=== PATIENT | female | born 1950 | race Caucasian/White ===

== ENCOUNTER → 2016-12-23 | Outpatient (CLI) | payer MEDICARE ==
--- NOTE | 2016-12-23 16:55 | BD ---
EXAMINATION TYPE: MG DEXA axial skeleton. DATE OF EXAM: 12/23/2016 COMPARISON: NONE CLINICAL HISTORY: Height: 61 Weight: 165.5 FRAX RISK QUESTIONS: Alcohol (3 or more units per day): no Family History (Parent hip fracture): no Glucocorticoids (More than 3mos): no (Ex: prednisone, prednisolone, methylprednisolone, dexamethasone, and hydrocortisone). History of Fracture in Adulthood: no Secondary Osteoporosis: 1. Type 1 Diabetes: no 2. Hyperthyroidism: no 3. Menopause before 45: no 4. Malnutrition: no 5. Chronic liver disease: no Rheumatoid Arthritis: no Current Tobacco Use: no RISK FACTORS HISTORY OF: Hip Fracture (Right/Left): no Spine Fracture: no History of Wrist Fracture: no Surgery to Spine/Hip(right/left)/Wrist (right/left): no Family History of Osteoporosis: no Active: yes Diet low in dairy products/other sources of calcium: yes Postmenopausal woman: age 52 Lost more than 2 inches in height since high school: no Frequent falls: no Poor Health: no Hyperparathyroidism: no Adrenal Insufficiency: no MEDICATIONS: none Additional History: EXAM MEASUREMENTS: Bone mineral densitometry was performed using the lettrs System. Bone mineral density as measured about the Lumbar spine is: ----- L1-L4(G/cm2): 1.416 T Score Values are as follows: ----- L2: 0.8 ----- L3: 2.6 ----- L4:2.8 ----- L1-L4: 2.0 Bone mineral density has: decreased -5.5 % since study of: 2011 Bone mineral density about the R hip (g/cm2): 1.249 Bone mineral density about the L hip (g/cm2): 1.179 T Score values are as follows: -----R Neck: 1.5 -----L Neck: 1.0 -----R Total: 1.7 -----L Total: 1.2 Bone mineral density has: increased 0.9 % since study of: 03.05.2012 IMPRESSION: Normal (Values between +1 and -1 indicate normal bone mass). Consider repeating this study in 5 year s or sooner if there is some new clinical indication. NOTE: T-SCORE=SD OF THE YOUNG ADULT MEAN.
--- NOTE | 2016-12-26 09:48 | MM ---
Reason for exam: screening (asymptomatic). Last mammogram was performed 1 year and 7 months ago. History: Patient is postmenopausal. Benign right mammotome panel of the right breast, January 04, 2008. Physical Findings: A clinical breast exam by your physician is recommended on an annual basis and results should be correlated with mammographic findings. MG 3D Screening Mammo W/Cad Bilateral CC and MLO view(s) were taken. Prior study comparison: May 21, 2015, bilateral MG 3d screening mammo w/cad. February 13, 2014, bilateral MG screening mammo w CAD. The breast tissue is almost entirely fat. Previous ultrasound biopsy in the right breast. No significant changes when compared with prior studies. ASSESSMENT: Benign, BI-RAD 2 RECOMMENDATION: Routine screening mammogram of both breasts in 1 year.
== END | disposition home or self-care (01) ==
LOC: RADMAMWWP 12:01
PROVIDERS: ATTEND Family Medicine
DX: Z12.31 Encounter for screening mammogram for malignant neoplasm of breast (principal); Z13.820 Encounter for screening for osteoporosis
CPT/HCPCS: 77080; 77063; G0202

== ENCOUNTER → 2018-06-25 | Outpatient (CLI) | payer MEDICARE ==
--- NOTE | 2018-06-26 08:22 | MM ---
Reason for exam: screening (asymptomatic). Last mammogram was performed 1 year and 6 months ago. History: Patient is postmenopausal. Benign right mammotome panel of the right breast, January 04, 2008. Physical Findings: A clinical breast exam by your physician is recommended on an annual basis and results should be correlated with mammographic findings. MG Screening Mammo w CAD Bilateral CC and MLO view(s) were taken. Prior study comparison: December 23, 2016, bilateral MG 3d screening mammo w/cad. May 21, 2015, bilateral MG 3d screening mammo w/cad. There are scattered fibroglandular densities. No suspicious abnormality. Right biopsy marker noted. No significant changes when compared with prior studies. ASSESSMENT: Negative, BI-RAD 1 RECOMMENDATION: Routine screening mammogram of both breasts in 1 year.
== END | disposition home or self-care (01) ==
LOC: RADMAMWWP 11:35
PROVIDERS: ATTEND Family Medicine
DX: Z12.31 Encounter for screening mammogram for malignant neoplasm of breast (principal)
CPT/HCPCS: 77067

== ENCOUNTER 2018-07-11 09:08 | Day surgery (SDC) | payer MEDICARE ==
[2018-07-06 16:48] VITALS: BMI 31.7
--- NOTE | 2018-07-11 08:04 | P.GSHP ---
History of Present Illness H&P Date: 07/11/18 CHIEF COMPLAINT: Colon screen HISTORY OF PRESENT ILLNESS: The patient is a 67-year-old female who presents for colon screen. Lower endoscopy was offered for further evaluation and management. PAST MEDICAL HISTORY: Please see list. PAST SURGICAL HISTORY: Please see list. MEDICATIONS: Please see list. ALLERGIES: Please see list. SOCIAL HISTORY: No illicit drug use FAMILY HISTORY: No reports of Crohn disease or ulcerative colitis. REVIEW OF ORGAN SYSTEMS: CONSTITUTIONAL: No reports of fevers or chills. PHYSICAL EXAM: VITAL SIGNS: Stable GENERAL: Well-developed pleasant in no acute distress. HEENT: No scleral icterus. Extraocular movements grossly intact. Moist buccal mucosa. NECK: Supple without lymphadenopathy. CHEST: Unlabored respirations. Equal bilateral excursions. CARDIOVASCULAR: Regular rate and rhythm. Distal 2+ pulses. ABDOMEN: Soft, nontender, nondistended. MUSCULOSKELETAL: No clubbing, cyanosis, or edema. ASSESSMENT: 1. Colon screen. PLAN: 1. Recommend proceeding with a lower endoscopy Past Medical History Past Medical History: GERD/Reflux, Hypertension, Osteoarthritis (OA) Additional Past Medical History / Comment(s): hx. colon polyps History of Any Multi-Drug Resistant Organisms: None Reported Past Surgical History: Tubal Ligation Additional Past Surgical History / Comment(s): dental surgery, colonoscopy Past Anesthesia/Blood Transfusion Reactions: No Reported Reaction Smoking Status: Former smoker - Past Family History Brother(s) Family Medical History: Cancer Additional Family Medical History / Comment(s): COLON CANCER Mother Family Medical History: Cancer Additional Family Medical History / Comment(s): Hodgkins lymphoma Medications and Allergies Home Medications Medication Instructions Recorded Confirmed Type Lisinopril [Zestril] 10 mg PO DAILY 07/06/18 07/06/18 History Lysine [l-Lysine] 500 mg PO DAILY 07/06/18 07/06/18 History Mirabegron [Myrbetriq] 50 mg PO DAILY 07/06/18 07/06/18 History [place]-3 Fatty Acids/Fish Oil [Fish 1 each PO DAILY 07/06/18 07/06/18 History Oil 1,000 mg Softgel] Omeprazole [PriLOSEC] 20 mg PO DAILY 07/06/18 07/06/18 History Zinc 50 mg PO DAILY 07/06/18 07/06/18 History Allergies Allergy/AdvReac Type Severity Reaction Status Date / Time codeine Allergy Hallucinati Verified 07/06/18 16:44 ons
[~2018-07-11 09:08] MED LIST: LACTATED RINGERS 1,000 ML IV SCH; LIDOCAINE 1% 20 ML VIAL (10MG/ML) FOR IV START INTRADERMA PRN
[2018-07-11 09:27] VITALS: RESP 16; TEMP 96.5
[2018-07-11] MEDS ORDERED: ATROPINE SULFATE 0.1 MG/ML 10ML SYRINGE ONE (10:05)
[2018-07-11] MEDS ORDERED: PROPOFOL 10 MG/ML 20 ML VIAL IV ONE (10:05)
[2018-07-11] MEDS ORDERED: LIDOCAINE 1% INJ 10MG/ML (20 ML MDV) ONE (10:05)
--- NOTE | 2018-07-11 10:35 | P.PCN ---
Date of Procedure: 07/11/18 Description of Procedure: PREOPERATIVE DIAGNOSIS: Personal history of malignant colon polyp Colonoscopy screening POSTOPERATIVE DIAGNOSIS: Personal history of malignant colon polyp Colonoscopy screening Diverticulosis, scattered Hepatic flexure tubular adenoma OPERATION: Colonoscopy to the ileocecal valve and appendiceal orifice. Colonoscopy with hot snare polypectomy SURGEON: Janiya Mckinney MD. ANESTHESIA: MAC. INDICATIONS: The patient is a 67-year-old female who presents for colonoscopy screening. Last colonoscopy 3 years ago with malignant polyp extracted. Benefits and risks were described and informed consent was obtained. DESCRIPTION OF PROCEDURE: The patient had undergone Gatorade, MiraLAX and Dulcolax prep. She had been brought into the operating room and laid in the left lateral decubitus position. After adequate intravenous sedation, the rectum was examined with 2% lidocaine jelly. No external hemorrhoids were encountered. The rectal tone was within normal limits. No lesions were palpated in the rectal vault. An Olympus colonoscope was advanced until the ileocecal valve and appendiceal orifice were clearly viewed. The prep was good with visualization of the mucosal folds. The scope was removed with visualization of each mucosal fold. No scattered diverticulosis was encountered. At the hepatic flexure, flat villous 8 mm colon polyp was snare polypectomy. No evidence of focal colitis was found. Retroflexion of the scope demonstrated grade 1 internal hemorrhoids without active bleeding or inflammation. The colon was desufflated. The patient had tolerated the procedure well. Withdrawal time was over 6 minutes. FINDINGS: [place] preparation quality scale 1 (1-5) Internal hemorrhoids, grade 1 No external hemorrhoids Scattered sigmoid diverticulosis No arteriovenous malformations. Removal of 1 polyp: - Snare polypectomy at the hepatic flexure, flat villous 8 mm colon polyp. No focal colitis. RECOMMENDATIONS: Given severity of tubular adenomas, recommend repeat colonoscopy 3 years, 2021. Plan - Discharge Summary Discharge Rx Participant: No New Discharge Prescriptions: No Action Omeprazole [PriLOSEC] 20 mg PO DAILY Mirabegron [Myrbetriq] 50 mg PO DAILY Lisinopril [Zestril] 10 mg PO DAILY Zinc 50 mg PO DAILY [place]-3 Fatty Acids/Fish Oil [Fish Oil 1,000 mg Softgel] 1 each PO DAILY Lysine [l-Lysine] 500 mg PO DAILY Discharge Medication List Lisinopril [Zestril] 10 mg PO DAILY 07/06/18 [History] Lysine [l-Lysine] 500 mg PO DAILY 07/06/18 [History] Mirabegron [Myrbetriq] 50 mg PO DAILY 07/06/18 [History] [place]-3 Fatty Acids/Fish Oil [Fish Oil 1,000 mg Softgel] 1 each PO DAILY 07/06/18 [History] Omeprazole [PriLOSEC] 20 mg PO DAILY 07/06/18 [History] Zinc 50 mg PO DAILY 07/06/18 [History] Follow up Appointment(s)/Referral(s): Janiya Mckinney MD [STAFF PHYSICIAN] - As Needed Patient Instructions/Handouts: Colorectal Polyps (DC), Diverticulosis (GEN), Diverticulosis Diet (GEN) Activity/Diet/Wound Care/Special Instructions: Repeat colonoscopy in 3 years, 2021 Discharge Disposition: HOME SELF-CARE
[2018-07-11 11:26] VITALS: BP 125/75; PULSE 88
== END 2018-07-11 11:33 | disposition home or self-care (01) ==
LOC: ORWHC2ENDO 09:08
PROVIDERS: ATTEND Surgery Plastic and Reconstructive Surgery
DX: Z12.11 Encounter for screening for malignant neoplasm of colon (principal); D12.3 Benign neoplasm of transverse colon; K57.30 Diverticulosis of large intestine without perforation or abscess without bleeding; K64.0 First degree hemorrhoids; Z86.010 Personal history of colon polyps; K21.9 Gastro-esophageal reflux disease without esophagitis; I10 Essential (primary) hypertension; M19.90 Unspecified osteoarthritis, unspecified site; Z87.891 Personal history of nicotine dependence; Z80.0 Family history of malignant neoplasm of digestive organs; Z80.7 Family history of other malignant neoplasms of lymphoid, hematopoietic and related tissues; F41.9 Anxiety disorder, unspecified; F32.9 Major depressive disorder, single episode, unspecified; Z79.899 Other long term (current) drug therapy; Z88.5 Allergy status to narcotic agent
CPT/HCPCS: 88305; 45385; J2001; J0461; J2704

== ENCOUNTER → 2019-03-13 | Outpatient (CLI) | payer MEDICARE ==
--- NOTE | 2019-03-13 14:38 | US ---
EXAMINATION TYPE: US pelvis complete transvag DATE OF EXAM: 03/13/2019 COMPARISON: NONE CLINICAL HISTORY: N93.9 ABN UTERINE AND VAGINAL BLEEDING. Vaginal bleeding, tubal ligation TECHNIQUE: Transvaginal (TV) and Transabdominal (TA) . Transabdominal sonographic images of the pel vis were acquired. Transvaginal sonographic images were medically necessary to better assess the fol lowing anatomy: endometrium, ovaries Date of LMP: unknown EXAM MEASUREMENTS: Uterus: 9.8 x 3.2 x 4.8 cm Endometrial Stripe: 1.9 cm Right Ovary: unable to visualize Left Ovary: unable to visualize 1. Uterus: Anteverted Nabothian cysts 2. Endometrium: thickened, cystic areas noted 3. Right Ovary: Obscured by overlying bowel gas 4. Left Ovary: Obscured by overlying bowel gas 5. Bilateral Adnexa: appears wnl 6. Posterior cul-de-sac: wnl IMPRESSION: Abnormally thickened and heterogenous endometrium. Differential is for endometrial hyperp lasia, endometrial polyp or endometrial mass. Direct visualization with sampling is recommended. Ovar ies are obscured by bowel gas and not visualized.
== END | disposition home or self-care (01) ==
LOC: RADUSWWP 12:40
PROVIDERS: ATTEND Family Medicine
DX: N85.8 Other specified noninflammatory disorders of uterus (principal)
CPT/HCPCS: 76830; 76856

== ENCOUNTER → 2019-04-22 | Outpatient (CLI) | payer MEDICARE ==
[2019-04-22 11:21] LABS: Basophils % (A) 0 %; Eosinophils # (A) 0.1 k/uL (0-0.7); Eosinophils % (A) 2 %; HCT 40.6 % (34.0-46.0); HGB 13.2 gm/dL (11.4-16.0); Lymphocytes # (A) 1.7 k/uL (1.0-4.8); Lymphocytes % (A) 20 %; MCH 29.5 pg (25.0-35.0); MCHC 32.7 g/dL (31.0-37.0); MCV 90.3 fL (80.0-100.0); Mean Platelet Volume 7.2; Monocytes # (A) 0.5 k/uL (0-1.0); Monocytes % (A) 6 %; Neutrophils # (A) 5.9 k/uL (1.3-7.7); Neutrophils % (A) 71 %; Platelet Count 296 k/uL (150-450); RBC 4.49 m/uL (3.80-5.40); RDW 12.2 % (11.5-15.5); WBC 8.3 k/uL (3.8-10.6)
== END | disposition home or self-care (01) ==
LOC: LABPAT 10:57
PROVIDERS: ATTEND Obstetrics & Gynecology
DX: Z01.818 Encounter for other preprocedural examination (principal); Z01.812 Encounter for preprocedural laboratory examination
CPT/HCPCS: 36415; 85025; 93005

== ENCOUNTER → 2019-04-30 | Day surgery (SDC) | payer MEDICARE ==
[2019-04-25 13:21] VITALS: BMI 30.9
--- NOTE | 2019-04-29 17:35 | P.HPOB ---
History of Present Illness H&P Date: 04/29/19 Chief Complaint: postmenopausal bleeding 68 year old presents for D&C hysteroscopy for postmenopausal bleeding and thickened endometrium. Review of Systems All systems: negative Constitutional: Denies chills, Denies fever Eyes: denies blurred vision, denies pain Ears, nose, mouth and throat: Denies headache, Denies sore throat Cardiovascular: Denies chest pain, Denies shortness of breath Respiratory: Denies cough Gastrointestinal: Denies abdominal pain, Denies diarrhea, Denies nausea, Denies vomiting Genitourinary: Denies dysuria, Denies hematuria Musculoskeletal: Denies myalgias Integumentary: Denies pruritus, Denies rash Neurological: Denies numbness, Denies weakness Psychiatric: Denies anxiety, Denies depression Endocrine: Denies fatigue, Denies weight change Past Medical History Past Medical History: GERD/Reflux, Hypertension, Osteoarthritis (OA) Additional Past Medical History / Comment(s): varicose vein, History of Any Multi-Drug Resistant Organisms: None Reported Past Surgical History: Tubal Ligation Additional Past Surgical History / Comment(s): dental surgery, colonoscopy, lymph node removed from neck Past Anesthesia/Blood Transfusion Reactions: Postoperative Nausea & Vomiting (PONV) Smoking Status: Former smoker - Past Family History Brother(s) Family Medical History: Cancer Additional Family Medical History / Comment(s): COLON, esophageal,skin Mother Family Medical History: Cancer Additional Family Medical History / Comment(s): Hodgkins lymphoma Sister(s) Family Medical History: Cancer Medications and Allergies Home Medications Medication Instructions Recorded Confirmed Type Lisinopril [Zestril] 10 mg PO DAILY 07/06/18 04/25/19 History [place]-3 Fatty Acids/Fish Oil [Fish 1 each PO DAILY 07/06/18 04/25/19 History Oil 1,000 mg Softgel] Cholecalciferol [Vitamin D3 (25 1,000 unit PO DAILY 04/25/19 04/25/19 History Mcg = 1000 Iu)] Escitalopram [Lexapro] 10 mg PO HS 04/25/19 04/25/19 History Ranitidine HCl [Zantac] 150 mg PO DAILY PRN 04/25/19 04/25/19 History Allergies Allergy/AdvReac Type Severity Reaction Status Date / Time codeine Allergy Hallucinati Verified 04/25/19 13:12 ons Exam Osteopathic Statement: *. No significant issues noted on an osteopathic structural exam other than those noted in the History and Physical/Consult. Assessment and Plan (1) Postmenopausal bleeding Status: Acute Code(s): N95.0 - POSTMENOPAUSAL BLEEDING SNOMED Code(s): 99058868 Plan: 1. D&C hysteroscopy
[~2019-04-30] MED LIST changes: +DEXAMETHASONE SOD PHOSPHATE 10 MG/ML 1 ML VIAL IV ONE; +HYDROmorphone 0.5 MG/0.5 ML SYRINGE IVP PRN; +KETOROLAC 30 MG/ML 1 ML VIAL ONE; -LACTATED RINGERS 1,000 ML IV SCH; +LIDOCAINE 1% (10MG/ML) FOR IV START INTRADERMA PRN; -LIDOCAINE 1% 20 ML VIAL (10MG/ML) FOR IV START INTRADERMA PRN; +MIDAZOLAM 2 MG/2 ML VIAL ONE; +ONDANSETRON 4 MG/2 ML VIAL IVP ONE; +ONDANSETRON 4 MG/2 ML VIAL IVP PRN; +PROPOFOL 10 MG/ML 20 ML VIAL IV ONE; +Pre Op ABX Message 1 EACH MISC MISCELLANE ONE; +SUCCINYLCHOLINE CHLORIDE 100 MG/5 ML SYR IV ONE; +fentaNYL (PF) 50 MCG/ML 2 ML AMP ONE
[2019-04-30] MEDS: LACTATED RINGERS 1,000 ML IV SCH ×2 (07:28→08:01)
--- NOTE | 2019-04-30 08:34 | P.OP ---
Date of Procedure: 04/30/19 Preoperative Diagnosis: 1. Postmenopausal bleeding Postoperative Diagnosis: 1. Postmenopausal bleeding Procedure(s) Performed: D&C hysteroscopy Anesthesia: VERO Surgeon: Jing Driver Estimated Blood Loss (ml): 3 IV fluids (ml): 500 Urine output (ml): 100 Pathology: other (Endometrial curettings) Condition: stable Disposition: PACU Operative Findings: Uterus sounded to 8 cm. Large appearing polyps in the endometrium. Moderate amount of endometrial curettings Description of Procedure: Patient is taken the operating room where general anesthesia was obtained without difficulty. She is prepped and draped in normal sterile fashion dorsal lithotomy position, legs placed in candycane stirrups. Bladder was drained of all urine. Weighted speculum was placed in the anterior lip of the cervix was grasped with single-tooth tenaculum. Uterus was sounded to 8 cm. The cervix was dilated to #6 Hegar dilator. Hysteroscopy was performed. The ostia were not able to be visualized. There were at least 2 large polyps seen within the endometrium. Sharp curet used to gently used to obtain endometrial curettings and polyp forceps were used to remove more tissue. Hemostasis was assured. All instruments removed from the vagina. Patient to our procedure well, sponge and instrument counts correct 2. She was taken to recovery in stable condition.
[2019-04-30 08:47] VITALS: TEMP 97.9
[2019-04-30 09:46] VITALS: BP 126/72; PULSE 66; RESP 18
== END | disposition home or self-care (01) ==
LOC: OR 06:54
PROVIDERS: ATTEND Obstetrics & Gynecology
DX: C54.1 Malignant neoplasm of endometrium (principal); N84.0 Polyp of corpus uteri; N95.0 Postmenopausal bleeding; I10 Essential (primary) hypertension; F32.9 Major depressive disorder, single episode, unspecified; K21.9 Gastro-esophageal reflux disease without esophagitis; M19.90 Unspecified osteoarthritis, unspecified site; I83.90 Asymptomatic varicose veins of unspecified lower extremity; Z88.5 Allergy status to narcotic agent; Z87.891 Personal history of nicotine dependence; Z79.899 Other long term (current) drug therapy; Z98.51 Tubal ligation status; Z98.890 Other specified postprocedural states; Z80.0 Family history of malignant neoplasm of digestive organs; Z80.8 Family history of malignant neoplasm of other organs or systems; Z80.7 Family history of other malignant neoplasms of lymphoid, hematopoietic and related tissues
CPT/HCPCS: 88305; 58558; J2250; J1100; J2405; J3010; J1885; J0330; J2704

== ENCOUNTER → 2019-05-08 | Outpatient (CLI) | payer MEDICARE ==
[2019-05-09 00:04] LABS: African American GFR (CKD) 108.5 (60.0-200.0); Albumin 4.3 g/dL (3.80-4.90); Albumin/Globulin Ratio 2.39 (1.60-3.17); Anion Gap 8.7 mmol/L (4.00-12.00); BUN/Creat Ratio 28.33 Ratio (12.00-20.00); Calcium 9.4 mg/dL (8.7-10.3); Carbon Dioxide 27.3 mmol/L (21.6-31.8); Globulin 1.8 g/dL (1.6-3.3); Non-African American GFR(CKD) 93.7 (60.0-200.0); Potassium 4.2 mmol/L (3.5-5.5); Total Bilirubin 0.5 mg/dL (0.2-1.2); Total Protein 6.1 g/dL (6.2-8.2)
== END | disposition home or self-care (01) ==
LOC: LABWHC1 15:35
PROVIDERS: ATTEND Obstetrics & Gynecology
DX: C55 Malignant neoplasm of uterus, part unspecified (principal)
CPT/HCPCS: 36415; 80053

== ENCOUNTER → 2019-05-10 | Outpatient (CLI) | payer MEDICARE ==
--- NOTE | 2019-05-10 14:59 | CT ---
EXAMINATION TYPE: CT ChestAbdPelvis wo/w con DATE OF EXAM: 05/10/2019 COMPARISON: 07/21/2010 HISTORY: Carcinoma of Uterus CT DLP: 3012 mGycm Automated exposure control for dose reduction was used. CONTRAST: CT scan of the chest, abdomen and pelvis is performed with Oral Contrast and without and with IV Cont rast, patient injected with 100 ml mL of Isovue 300. FINDINGS: LUNGS: The lungs are grossly clear. There is a small 3 mm nodule in the left lower lobe axial image 4 0 sequence 3. There is no pleural effusion or pneumothorax seen. The tracheobronchial tree is henry nt. Subsegmental linear changes most typical of atelectasis. MEDIASTINUM: There are no greater than 1 cm hilar or mediastinal lymph nodes. No pericardial effusi on is seen. OTHER: Moderate-sized hiatal hernia noted. LIVER/GB: 7 mm hyperdensity at the dome of the liver laterally axial image 51 is too small to charact erize. PANCREAS: No significant abnormality is seen. SPLEEN: No significant abnormality is seen. ADRENALS: No significant abnormality is seen. KIDNEYS: Hypodensities within the kidneys are too small to characterize. Likely related to simple cys ts.. BOWEL: Diverticulosis of the colon with no CT evidence of diverticulitis. LYMPH NODES: No greater than 1 cm abdominal or pelvic lymph nodes are appreciated. OSSEOUS STRUCTURES: Hypertrophic and degenerative changes of the spine are noted. OTHER: Endometrium is mildly prominent in thickness measuring 2.6 cm. No surrounding pathologic adeno mini. No free fluid. The omentum has a normal appearance. IMPRESSION: 1. Endometrium is thickened measuring 2.6 cm correlate for endometrial pathology or carcinoma. No pat hologic adenopathy or free fluid. 2. Diverticulosis of the colon. 3. Moderate-sized hiatal hernia. 4. There is a small nodule within the left lower lobe axial image 40 measuring 3 mm too small to gloria acterize and could be followed on six-month basis..
== END | disposition home or self-care (01) ==
LOC: RADCTMAIN 12:19
PROVIDERS: ATTEND Obstetrics & Gynecology
DX: C55 Malignant neoplasm of uterus, part unspecified (principal); R91.1 Solitary pulmonary nodule; K57.30 Diverticulosis of large intestine without perforation or abscess without bleeding; K44.9 Diaphragmatic hernia without obstruction or gangrene
CPT/HCPCS: 71270; 74178; Q9967

== ENCOUNTER → 2019-11-20 | Outpatient (CLI) | payer MEDICARE ==
[2019-11-20 11:21] LABS: African American GFR (CKD) >90 (>60 ml/min/1.73 sqM); Blood Urea Nitrogen 14 mg/dL (7-17); Non-African American GFR(CKD) >90 (>60 ml/min/1.73 sqM)
--- NOTE | 2019-11-20 13:29 | CT ---
"EXAMINATION TYPE: CT ChestAbdPelvis w con DATE OF EXAM: 11/20/2019 COMPARISON: CT May 10, 2019 HISTORY: Endometrial cancer, Lung nodule CT DLP: 1050 mGycm. Automated Exposure Control for Dose Reduction was Utilized. CONTRAST: CT scan of the thorax, abdomen and pelvis is performed with oral and with IV Contrast, patient inject ed with 100 ml mL of Isovue 300. FINDINGS: LUNGS: Stable 3 mm nodule in the periphery left lung base axial image 43 and coronal image 68. This w as present 2011 CT axial image 38 and thus is presumed benign. Mild linear scarring and/or atelectas is in both bases just above the diaphragm. No suspicious new pulmonary nodules or masses. No pleural effusion or pneumothorax seen bilaterally. MEDIASTINUM: There are no new greater than 1 cm hilar or mediastinal lymph nodes. No cardiomegaly or pericardial effusion is seen. LIVER/GB: Faint 13 x 8 mm hyperdense area posterior segment right hepatic dome image 52 is isodense o n delayed phase images, favor transient hepatic attenuation difference over a true lesion. PANCREAS: No significant abnormality is seen. SPLEEN: No significant abnormality is seen. ADRENALS: No significant abnormality is seen. KIDNEYS: Stable 1.2 cm thin-walled cyst posteriorly upper pole of the right kidney seen series 7 imag e 33. BOWEL: Stable small to moderate size hiatal hernia. The oral contrast does not reach level of termina l ileum making evaluation of distal bowel slightly suboptimal. No suspicious small or large bowel dil atation. Persistent sigmoid colonic diverticulosis. GENITAL ORGANS: Uterus is now surgically absent. In the left pelvis there is 5.5 x 4.8 cm x 3 times c entimeter craniocaudal length fluid collection with some mild to moderate wall thickening extending d own to the level of left groin. There is local mass effect on the left colon which is deviated centra lly and perhaps mild fat stranding along the posterior margin of the fluid collection LYMPH NODES: No new greater than 1cm abdominal or pelvic lymph nodes are appreciated. OSSEOUS STRUCTURES: Multilevel spurring in the spine. Facet arthropathy lower lumbar levels. Slight u nderlying scoliotic curvature. OTHER: New Infrarenal IVC filter. Small to moderate-sized bilateral fat containing inguinal hernias bilaterally are redemonstrated with . IMPRESSION: 1. Interval hysterectomy. No new suspicious mass or adenopathy to suggest metastatic neoplastic recu rrence. Stable left lower lobe 3 mm nodule presumed benign. 2. New left pelvic fluid collection with mild to moderate concentric wall thickness measuring 10 cm i n length. Differential includes postsurgical seroma, hematoma, and abscess. Correlate clinically. A Yellow level critical message alert has been initiated for Wang Strickland MD via the [employer] 36 0 | Critical Results System on 11/20/2019 1:27 PM. This message alert has been sent to Wang Strickland MD via the preferences provided by the clinician for the receipt of Radiology Critical Findings. [facility] ID [id number]."
== END | disposition home or self-care (01) ==
LOC: RADCTMAIN 10:32
PROVIDERS: ATTEND Internal Medicine Hematology & Oncology
DX: C54.9 Malignant neoplasm of corpus uteri, unspecified (principal); Z90.710 Acquired absence of both cervix and uterus
CPT/HCPCS: 82565; 84520; 71260; 74177; 36415; Q9967

== ENCOUNTER 2019-11-22 09:57 | Day surgery (SDC) | payer MEDICARE ==
[2019-11-22 12:31] VITALS: RESP 16; TEMP 98.3
[2019-11-22 12:33] VITALS: BP 124/71; PULSE 72
--- NOTE | 2019-11-22 14:31 | US ---
EXAMINATION TYPE: US guided soft tissue drainage DATE OF EXAM: 11/22/2019 CLINICAL HISTORY: Left lower quadrant loculated fluid collection. 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 Preprocedure preliminary ultrasound imaging demonstrates a focal 10.4 cm ovoid fluid collection just deep to the peritoneum, with mild dependent layering internal lacelike debris which looks like clot/b lood product. The procedure was discussed with the patient. The risks, complications, benefits, and alternatives we re discussed and any questions were answered. Informed consent was obtained. The patient was placed s upine on the ultrasound table and prepped and draped in the usual sterile fashion. All elements of maximal barrier technique were utilized. Under ultrasound guidance, access into the left lower quadrant focal fluid collection was obtained with a 5 Urdu one-step centesis catheter. Approximately 70 cc of clear serous fluid was removed. Catheter was removed and sterile bandage was a pplied. The patient was stable throughout the procedure and remained stable upon discharge from [facility]. Postprocedure imaging demonstrated no appreciable residual fluid component, with persistent appearanc e of the lacelike debris, likely clot, with no internal flow or mural nodularity. IMPRESSION: Successful ultrasound-guided aspiration of focal left lower quadrant fluid collection, with removal o f 70 cc of clear serous fluid. Residual lacelike echogenic debris which was seen layering in the depe ndent aspect of the fluid collection is likely residual clot. Wide differential includes postoperativ e seroma/hematoma, focal peritoneal fluid, metastatic etiology, and lymphocele.
== END 2019-11-22 12:30 | disposition home or self-care (01) ==
LOC: RADPROMAIN 09:57
PROVIDERS: ATTEND Internal Medicine Hematology & Oncology
DX: R18.8 Other ascites (principal); C54.1 Malignant neoplasm of endometrium; Z79.899 Other long term (current) drug therapy
CPT/HCPCS: 10030; 76942; 88108; 88305; 88341; 88342

== ENCOUNTER → 2020-04-20 | Outpatient (CLI) | payer MEDICARE ==
--- NOTE | 2020-04-20 17:40 | BD ---
EXAMINATION TYPE: Axial Bone Density DATE OF EXAM: 04/20/2020 COMPARISON: 12/23/2016 CLINICAL HISTORY: Postmenopausal screening Height: 5 FT 1 1/2 IN Weight: 170 FRAX RISK QUESTIONS: Alcohol (3 or more units per day): NO Family History (Parent hip fracture): NO Glucocorticoids (More than 3mos): NO (Ex: prednisone, prednisolone, methylprednisolone, dexamethasone, and hydrocortisone). History of Fracture in Adulthood: YES Secondary Osteoporosis: 1. Type 1 Diabetes: NO 2. Hyperthyroidism: NO 3. Menopause before 45: NO 4. Malnutrition: NO 5. Chronic liver disease: NO Rheumatoid Arthritis: NO Current Tobacco Use: NO RISK FACTORS HISTORY OF: Family History of Osteoporosis: NO Active: YES Diet low in dairy products/other sources of calcium: NO Postmenopausal woman: AGE 52 TOTAL HYST AGE 69 ENDOMETRIEL CANCER RADIATION AND CHEMO Take estrogen and/or progesterone medications: NONE Lost more than 2 inches in height since high school: NO MEDICATIONS: Additional Medications: LISINOPRIL, LEVAPRO Additional History: ENDOMETRIEL CANCER 2020 CHEMO AND RADIATION AND TOTAL HYST EXAM MEASUREMENTS: Bone mineral densitometry was performed using the Giggle System. Bone mineral density as measured about the Lumbar spine is: ----- L1-L4(G/cm2): 1.463 T Score Values are as follows: ----- L2: 1.6 ----- L3: 2.7 ----- L4: 3.2 ----- L1-L4: 2.4 Bone mineral density has: INCREASED 3.8 % since study of: 2016 Bone mineral density about the R hip (g/cm2): 1.156 Bone mineral density about the L hip (g/cm2): 1.192 T Score values are as follows: -----R Neck: 0.8 -----L Neck: 1.1 -----R Total: 1.1 -----L Total: 1.3 Bone mineral density has: DECREASED -2.9 % since study of: 2016 IMPRESSION: Normal (Values between +1 and -1 indicate normal bone mass). Consider repeating this study in 5 year s or sooner if there is some new clinical indication. NOTE: T-SCORE=SD OF THE YOUNG ADULT MEAN.
--- NOTE | 2020-04-21 11:24 | MM ---
Reason for exam: screening (asymptomatic). Last mammogram was performed 1 year and 10 months ago. History: Patient is postmenopausal and has history of endometrial cancer at age 69. Benign right mammotome panel of the right breast, January 04, 2008. Took hormonal contraceptives for 15 years. Physical Findings: A clinical breast exam by your physician is recommended on an annual basis and results should be correlated with mammographic findings. MG 3D Screening Mammo W/Cad Bilateral CC and MLO view(s) were taken. Prior study comparison: June 25, 2018, bilateral MG screening mammo w CAD. December 23, 2016, bilateral MG 3d screening mammo w/cad. There are scattered fibroglandular densities. No significant changes when compared with prior studies. ASSESSMENT: Benign, BI-RAD 2 RECOMMENDATION: Routine screening mammogram of both breasts in 1 year.
== END | disposition home or self-care (01) ==
LOC: RADMAMWWP 14:43
PROVIDERS: ATTEND Family Medicine
DX: Z12.31 Encounter for screening mammogram for malignant neoplasm of breast (principal); Z78.0 Asymptomatic menopausal state
CPT/HCPCS: 77063; 77067; 77080

== ENCOUNTER → 2020-11-13 | Outpatient (CLI) | payer MEDICARE ==
[2020-11-13 12:36] LABS: African American GFR (CKD) >90 (>60 ml/min/1.73 sqM); Blood Urea Nitrogen 15 mg/dL (7-17); Non-African American GFR(CKD) >90 (>60 ml/min/1.73 sqM)
--- NOTE | 2020-11-13 20:27 | CT ---
EXAMINATION TYPE: CT ChestAbdPelvis w con DATE OF EXAM: 11/13/2020 COMPARISON: CT chest abdomen pelvis, November 20, 2019 HISTORY: Endometrial cancer and Lung nodule CT DLP: 1641 mGycm Automated exposure control for dose reduction was used. CONTRAST: CT scan of the chest, abdomen and pelvis is performed with Oral Contrast and with IV Contrast, patien t injected with 100 ml mL of Isovue 300. FINDINGS: LUNGS: The lungs are grossly clear. A 4 mm nodule in the left lower lung (series 4 image 44). A 2 mm nodule is seen in the left mid lung (series 4 image 35). There is no pleural effusion or pneumothor ax seen. The tracheobronchial tree is patent. MEDIASTINUM: There are no greater than 1 cm hilar or mediastinal lymph nodes. No pericardial effusi on is seen. OTHER: No additional significant abnormality is seen. LIVER/GB: Noncirrhotic morphology. Redemonstration of a 1.3 x 0.8 cm hyperdense lesion in the posteri or right lobe similar to prior likely presents a flash filling hemangioma. PANCREAS: No significant abnormality is seen. SPLEEN: No significant abnormality is seen. ADRENALS: No significant abnormality is seen. KIDNEYS: Symmetrically enhancing. Subcentimeter right renal cyst. BOWEL: Sigmoid colon diverticulosis without evidence of acute diverticulitis. Hiatal hernia. Nondila waldo bowel. REPRODUCTIVE ORGANS: Uterus is surgically absent. LYMPH NODES: No greater than 1 cm abdominal or pelvic lymph nodes are appreciated. OSSEOUS STRUCTURES: No significant abnormality is seen. OTHER: Interval decrease in the size of the left pelvic, thin-walled cystic structure currently measu res 3.6 x 3.3 cm maximally, previously 5.5 x 4.8 cm axially and thick-walled. IMPRESSION: 1. Interval decrease in the size of the left pelvic cystic structure which likely represents a posto perative seroma. 2. Stable secondary findings as above.
== END | disposition home or self-care (01) ==
LOC: RADCTMAIN 10:46
PROVIDERS: ATTEND Internal Medicine Hematology & Oncology
DX: C54.1 Malignant neoplasm of endometrium (principal); R91.1 Solitary pulmonary nodule
CPT/HCPCS: 82565; 84520; 71260; 74177; 36415; Q9967

== ENCOUNTER → 2020-11-23 | Outpatient (CLI) | payer MEDICARE ==
--- NOTE | 2020-11-23 13:59 | XR ---
EXAM TYPE: LUMBAR SPINE X RAY SERIES COMPARISON: NONE HISTORY: Pain TECHNIQUE: 4 views are submitted. FINDINGS: Alignment is anatomic. The pedicles are intact. The transverse processes are intact. There is scol iosis with multilevel severe degenerative disc disease. A retrolisthesis of L3 on L4 is noted. Multil evel facet arthropathy and foraminal encroachment suspected. Vascular calcifications noted. IMPRESSION: 1. Severe multilevel degenerative disc disease with multilevel facet arthropathy and foraminal encroa chment suspected.
== END | disposition home or self-care (01) ==
LOC: RADXRMAIN 13:39
PROVIDERS: ATTEND Family Medicine
DX: M51.36 Other intervertebral disc degeneration, lumbar region (principal); M47.816 Spondylosis without myelopathy or radiculopathy, lumbar region
CPT/HCPCS: 72100

== ENCOUNTER → 2021-06-02 | Outpatient (CLI) | payer MEDICARE ==
--- NOTE | 2021-06-03 14:44 | MM ---
Reason for exam: screening (asymptomatic). Last mammogram was performed 1 year and 1 month ago. History: Patient is postmenopausal and has history of endometrial cancer at age 69. Family history of breast cancer in sister at age 73. Benign right mammotome panel of the right breast, January 04, 2008. Took hormonal contraceptives for 15 years. Physical Findings: A clinical breast exam by your physician is recommended on an annual basis and results should be correlated with mammographic findings. MG 3D Screening Mammo W/Cad Bilateral CC and MLO view(s) were taken. Prior study comparison: April 20, 2020, bilateral MG 3d screening mammo w/cad. June 25, 2018, bilateral MG screening mammo w CAD. There are scattered fibroglandular densities. No significant changes when compared with prior studies. ASSESSMENT: Benign, BI-RAD 2 RECOMMENDATION: Routine screening mammogram of both breasts in 1 year.
== END | disposition home or self-care (01) ==
LOC: RADMAMWWP 13:37
PROVIDERS: ATTEND Family Medicine
DX: Z12.31 Encounter for screening mammogram for malignant neoplasm of breast (principal); Z78.0 Asymptomatic menopausal state; Z80.3 Family history of malignant neoplasm of breast
CPT/HCPCS: 77063; 77067

== ENCOUNTER 2021-09-01 09:52 | Day surgery (SDC) | payer MEDICARE ==
[~2021-09-01 09:52] MED LIST changes: -DEXAMETHASONE SOD PHOSPHATE 10 MG/ML 1 ML VIAL IV ONE; -HYDROmorphone 0.5 MG/0.5 ML SYRINGE IVP PRN; -KETOROLAC 30 MG/ML 1 ML VIAL ONE; +LACTATED RINGERS 1,000 ML IV SCH; -MIDAZOLAM 2 MG/2 ML VIAL ONE; -ONDANSETRON 4 MG/2 ML VIAL IVP ONE; -ONDANSETRON 4 MG/2 ML VIAL IVP PRN; -PROPOFOL 10 MG/ML 20 ML VIAL IV ONE; -Pre Op ABX Message 1 EACH MISC MISCELLANE ONE; -SUCCINYLCHOLINE CHLORIDE 100 MG/5 ML SYR IV ONE; -fentaNYL (PF) 50 MCG/ML 2 ML AMP ONE
[2021-09-01 10:11] VITALS: RESP 18; TEMP 97.8
[2021-09-01] MEDS ORDERED: LACTATED RINGERS 1,000 ML IV ONE (10:11)
[2021-09-01] MEDS ORDERED: PROPOFOL 10 MG/ML 20 ML VIAL IV ONE (10:41)
[2021-09-01] MEDS ORDERED: LIDOCAINE 2% INJ 20 MG/ML (2 ML VIAL) ONE (10:41)
--- NOTE | 2021-09-01 11:08 | P.GSHP ---
History of Present Illness H&P Date: 09/01/21 CHIEF COMPLAINT: GERD and colon screen HISTORY OF PRESENT ILLNESS: The patient is a 71-year-old female who presents with gastroesophageal reflux disease and need for colon screen. Upper and lower endoscopy were offered for further evaluation and management. PAST MEDICAL HISTORY: Please see list. PAST SURGICAL HISTORY: Please see list. MEDICATIONS: Please see list. ALLERGIES: Please see list. SOCIAL HISTORY: No illicit drug use FAMILY HISTORY: No reports of Crohn disease or ulcerative colitis. REVIEW OF ORGAN SYSTEMS: CONSTITUTIONAL: No reports of fevers or chills. GI: Denies any blood in stools or constipation. PHYSICAL EXAM: VITAL SIGNS: Stable GENERAL: Well-developed pleasant in no acute distress. HEENT: No scleral icterus. Extraocular movements grossly intact. Moist buccal mucosa. NECK: Supple without lymphadenopathy. CHEST: Unlabored respirations. Equal bilateral excursions. CARDIOVASCULAR: Regular rate and rhythm. Distal 2+ pulses. ABDOMEN: Soft, nondistended. MUSCULOSKELETAL: No clubbing, cyanosis, or edema. ASSESSMENT: 1. Gastroesophageal reflux disease 2. Colon screen. PLAN: 1. 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 colon polyps, increased GERD recently, urinary frequency History of Any Multi-Drug Resistant Organisms: None Reported Past Surgical History: Hysterectomy, Tubal Ligation Additional Past Surgical History / Comment(s): dental surgery, colonoscopy, right pelvic filter placed for blood clot, complete hysterectomy & pelvic lymph node removal for cancer, D & C Past Anesthesia/Blood Transfusion Reactions: No Reported Reaction Smoking Status: Former smoker - Past Family History Brother(s) Family Medical History: Cancer Additional Family Medical History / Comment(s): COLON, esophageal,skin Mother Family Medical History: Cancer Additional Family Medical History / Comment(s): Hodgkins lymphoma Sister(s) Family Medical History: Cancer Medications and Allergies Home Medications Medication Instructions Recorded Confirmed Type Cholecalciferol [Vitamin D3 (25 2,000 unit PO DAILY 04/25/19 08/31/21 History Mcg = 1000 Iu)] Cyanocobalamin (Vitamin B-12) 1,000 mcg PO DAILY 08/31/21 08/31/21 History [Vitamin B-12] FLUoxetine HCL [PROzac] 20 mg PO HS 08/31/21 08/31/21 History Irbesartan [Avapro] 150 mg PO DAILY 08/31/21 08/31/21 History [place]-3 Fatty Acids/Fish Oil [Fish 1 each PO DAILY 08/31/21 08/31/21 History Oil 1,000 mg Softgel] Omeprazole [PriLOSEC] 20 mg PO AC-BRKFST 08/31/21 08/31/21 History Vitamin B Complex 1 each PO DAILY 08/31/21 08/31/21 History rOPINIRole HCL [Requip] 0.25 mg PO HS 08/31/21 08/31/21 History Allergies Allergy/AdvReac Type Severity Reaction Status Date / Time codeine Allergy Hallucinati Verified 08/31/21 10:26 ons Surgical - Exam Vital Signs Temp Pulse Resp BP Pulse Ox 97.8 F 78 18 130/70 97 09/01/21 10:10 09/01/21 10:10 09/01/21 10:10 09/01/21 10:10 09/01/21 10:10
--- NOTE | 2021-09-01 11:16 | P.PCN ---
Date of Procedure: 09/01/21 Description of Procedure: PREOPERATIVE DIAGNOSIS: Gastroesophageal reflux disease. POSTOPERATIVE DIAGNOSIS: Gastroesophageal reflux disease with erosive esophagitis Diaphragmatic hiatal hernia, paraesophageal OPERATION: Esophagogastroduodenoscopy with biopsies along antrum and duodenum SURGEON: Janiya Mckinney MD ANESTHESIA: MAC. INDICATIONS: The patient is a 71-year-old female who presents with reflux disease. Benefits and risks of the procedure were described. Informed consent was obtained. DESCRIPTION: The patient was brought into the endoscopy suite and laid in the left lateral decubitus position. An Olympus gastroscope was passed along the posterior oropharynx down to the distal esophagus where the squamocolumnar junction was encountered at 35 cm from the incisors. The stomach was entered and no bile reflux was found. Additional findings are listed below. Biopsies with cold forceps were obtained of the antrum. The first through third portion of the duodenum was examined. Retroflexion of the scope confirmed Hill grade 4 lower esophageal valve. The squamocolumnar junction demonstrated LA grade B erosive esophagitis. The stomach was desufflated. The patient tolerated the procedure well. FINDINGS: Squamocolumnar junction 35 cm from the incisors. Diaphragmatic hiatus at 40 cm. Hiatal hernia, 5 cm Hill grade 4 lower esophageal valve. LA grade B erosive esophagitis. Cold biopsies obtained for duodenitis Chronic gastritis RECOMMENDATIONS: 1. Upper endoscopy as needed 2. Recommend antireflux operation
--- NOTE | 2021-09-01 11:23 | P.PCN ---
Date of Procedure: 09/01/21 Description of Procedure: PREOPERATIVE DIAGNOSIS: Colonoscopy screening History of colon polyps POSTOPERATIVE DIAGNOSIS: Colonoscopy screening History of colon polyps Severe sigmoid diverticulosis with sigmoid stricture OPERATION: Colonoscopy to the sigmoid colon. SURGEON: Janiya Mckinney MD. ANESTHESIA: MAC. INDICATIONS: The patient is a 71-year-old female who presents for colonoscopy screening. Her last colonoscopy was more than 5 years ago. Benefits and risks were described and informed consent was obtained. DESCRIPTION OF PROCEDURE: The patient had undergone Sutab prep. She had been brought into the operating room and laid in the left lateral decubitus position. After adequate intravenous sedation, the rectum was examined with 2% lidocaine jelly. External hemorrhoids were encountered. The rectal tone was loose. No lesions were palpated in the rectal vault. An pediatric Olympus colonoscope was advanced along the rectum to a very tortuous sigmoid colon. Despite multiple maneuvers, the sigmoid colon had severe tortuosity preventing further advancement of scope. The scope was passed to 40 cm from the anal verge. No evidence of polyps were identified. As the patient posed high risk for perforation with persistence of the procedure, the procedure was discontinued. The colon was desufflated. The patient had tolerated the procedure well. Withdrawal time was over 6 minutes. FINDINGS: [place] preparation quality scale 1 (1-5) Tortuous sigmoid colon with stricture preventing further advancement of the scope. External prolapsed hemorrhoids, grade 2. Internal hemorrhoids, grade 1 Scope advanced to sigmoid colon at 30 cm. No arteriovenous malformations, up to 30 cm No adenomatous polyps up to 30 cm No focal colitis, up to 30 cm RECOMMENDATIONS: Completion of colonoscopy evaluation with barium enema. Plan - Discharge Summary Discharge Rx Participant: No New Discharge Prescriptions: Continue Cholecalciferol [Vitamin D3 (25 Mcg = 1000 Iu)] 2,000 unit PO DAILY Omeprazole [PriLOSEC] 20 mg PO AC-BRKFST [place]-3 Fatty Acids/Fish Oil [Fish Oil 1,000 mg Softgel] 1 each PO DAILY rOPINIRole HCL [Requip] 0.25 mg PO HS FLUoxetine HCL [PROzac] 20 mg PO HS Irbesartan [Avapro] 150 mg PO DAILY Vitamin B Complex 1 each PO DAILY Cyanocobalamin (Vitamin B-12) [Vitamin B-12] 1,000 mcg PO DAILY Discharge Medication List Cholecalciferol [Vitamin D3 (25 Mcg = 1000 Iu)] 2,000 unit PO DAILY 04/25/19 [History] Cyanocobalamin (Vitamin B-12) [Vitamin B-12] 1,000 mcg PO DAILY 08/31/21 [History] FLUoxetine HCL [PROzac] 20 mg PO HS 08/31/21 [History] Irbesartan [Avapro] 150 mg PO DAILY 08/31/21 [History] [place]-3 Fatty Acids/Fish Oil [Fish Oil 1,000 mg Softgel] 1 each PO DAILY 08/31/21 [History] Omeprazole [PriLOSEC] 20 mg PO AC-BRKFST 08/31/21 [History] Vitamin B Complex 1 each PO DAILY 08/31/21 [History] rOPINIRole HCL [Requip] 0.25 mg PO HS 08/31/21 [History] Follow up Appointment(s)/Referral(s): Janiya Mckinney MD [STAFF PHYSICIAN] - 1 Week Patient Instructions/Handouts: Hiatal Hernia (DC), Diverticulosis (DC), Diverticulosis Diet (GEN) Activity/Diet/Wound Care/Special Instructions: Repeat colonoscopy in 3 years, 2024 Discharge Disposition: HOME SELF-CARE
[2021-09-01 11:32] VITALS: BP 129/78; PULSE 65
--- NOTE | 2021-09-02 13:32 | XR ---
EXAMINATION TYPE: FL barium enema DATE OF EXAM: 09/01/2021 COMPARISON: None INDICATION: Incomplete colonoscopy TECHNIQUE: Single view abdomen supine view and 2 images. FINDINGS: There is excessive bowel gas within the colon and small bowel loops. Additional delayed images also d emonstrate excessive bowel gas. Recommend clear liquid diet and lower GI tomorrow. Psoas margins are normal. No organomegaly is present. IMPRESSION: 1. Excessive bowel gas initial and repeat imaging.
== END 2021-09-01 12:29 | disposition home or self-care (01) ==
LOC: ORWHC2ENDO 09:52
PROVIDERS: ATTEND Surgery Plastic and Reconstructive Surgery
DX: Z12.11 Encounter for screening for malignant neoplasm of colon (principal); K57.30 Diverticulosis of large intestine without perforation or abscess without bleeding; K29.50 Unspecified chronic gastritis without bleeding; K44.9 Diaphragmatic hernia without obstruction or gangrene; K21.00 Gastro-esophageal reflux disease with esophagitis, without bleeding; E78.5 Hyperlipidemia, unspecified; I10 Essential (primary) hypertension; M19.90 Unspecified osteoarthritis, unspecified site; Z79.899 Other long term (current) drug therapy; Z87.891 Personal history of nicotine dependence; Z90.710 Acquired absence of both cervix and uterus; Z86.010 Personal history of colon polyps
CPT/HCPCS: 45378; 43239; 88305; 74018; J2704; J2001

== ENCOUNTER → 2021-09-02 | Outpatient (CLI) | payer MEDICARE ==
--- NOTE | 2021-09-03 06:15 | FL ---
EXAMINATION TYPE: FL barium enema DATE OF EXAM: 09/02/2021 COMPARISON: CT chest abdomen and pelvis November 13, 2020 HISTORY: Incomplete colonoscopy. History of endometrial cancer. TECHNIQUE: A double contrast barium enema study is performed. A total of 2 minutes 16 seconds of fl uoroscopic time was utilized during procedure and 23 images obtained. FINDINGS: Wood Panel Inspector view of the abdomen shows overall non-obstructive bowel gas pattern. Right-sided pel fabian phleboliths are present. Underlying scoliotic curvature is seen. There is successful contrast filling the cecum. There is some redundancy of the sigmoid colon limitin g evaluation at this level also causing over pooling of barium limiting evaluation for polyps. No obs tructing or constricting lesion throughout the colon. Sigmoid colonic diverticulosis is present. Appendix and the terminal ileum one at reflux. IMPRESSION: Successful filling to the cecum. Sigmoid colonic diverticulosis. No obstructing or const ricting neoplasm.
== END | disposition home or self-care (01) ==
LOC: LABWHC1 09:31
PROVIDERS: ATTEND Surgery Plastic and Reconstructive Surgery
DX: K21.00 Gastro-esophageal reflux disease with esophagitis, without bleeding (principal); Z86.010 Personal history of colon polyps
CPT/HCPCS: 74270

== ENCOUNTER → 2022-07-28 | Outpatient (CLI) | payer MEDICARE ==
--- NOTE | 2022-07-29 14:52 | MM ---
Reason for Exam: Screening (asymptomatic). Last mammogram was performed 1 year(s) and 1 month(s) ago. Patient History: Menarche at age 11. First Full-Term at age 18. Hysterectomy at age 68. Postmenopausal. Patient has history of breast feeding. Endometrial cancer, age 69. Patient used Hormonal Contraceptives for 15 years. 01/04/2008, Benign Core Biopsy on the right side. Sister had breast cancer, age 73. Risk Values: Meagan 5 year model risk: 4.2%. NCI Lifetime model risk: 11.3%. Prior Study Comparison: 02/13/2014 Bilateral Screening Mammogram, [facility]. 05/21/2015 Bilateral Screening Mammogram, [facility]. 12/23/2016 Bilateral Screening Mammogram, [facility]. 06/25/2018 Bilateral Screening Mammogram, [facility]. 04/20/2020 Bilateral Screening Mammogram, [facility]. 06/02/2021 Bilateral Screening Mammogram, [facility]. Tissue Density: There are scattered fibroglandular densities. Findings: Analyzed By CAD. Microclip medial right breast from prior biopsy. Benign vascular calcifications on the right. There is no suspicious group of microcalcifications or new suspicious mass in either breast. Overall Assessment: Negative, BI-RAD 1 Management: Screening Mammogram of both breasts in 1 year. . Patient should continue monthly self-breast exams. A clinical breast exam by your physician is recommended on an annual basis. This exam should not preclude additional follow-up of suspicious palpable abnormalities. Note on Meagan scores and lifetime risk: 1. A Meagan score greater than 3% is considered moderate risk. If this is the case, consider specialist referral to assess eligibility for a risk reducing agent. 2. If overall lifetime risk for the development of breast cancer is 20% or higher, the patient may qualify for future screening with alternating mammogram and breast MRI. Electronically signed and approved by: Casey Landa M.D. Radiologist
== END | disposition home or self-care (01) ==
LOC: RADMAMWWP 13:27
PROVIDERS: ATTEND Family Medicine
DX: Z12.31 Encounter for screening mammogram for malignant neoplasm of breast (principal); Z80.3 Family history of malignant neoplasm of breast; Z78.0 Asymptomatic menopausal state; Z98.890 Other specified postprocedural states
CPT/HCPCS: 77063; 77067

== ENCOUNTER → 2022-11-25 | Outpatient (CLI) | payer MEDICARE ==
--- NOTE | 2022-11-27 08:15 | CA ---
Transthoracic Echo Report Name: Sandee Aguila Age: 72 Gender: F : 1950 Exam Date: 11/25/2022 13:05 Exam Location: [facility] Ht (in): 61 Wt (lb): 177 Ordering Physician: Jeff Jordan DO Attending/Referring Phys: Jayna Rivero [facility] Board Attendant Shwetha Felder [facility] Procedure CPT: Indications: R06.09 Dyspnea Cardiac Hx: Technical Quality: Fair Contrast 1: Total Dose (mL): Contrast 2: Total Dose (mL): MEASUREMENTS (Male / Female) Normal Values 2D ECHO LV Diastolic Diameter PLAX 3.8 cm 4.2 - 5.9 / 3.9 - 5.3 cm LV Systolic Diameter PLAX 2.1 cm IVS Diastolic Thickness 0.9 cm 0.6 - 1.0 / 0.6 - 0.9 cm LVPW Diastolic Thickness 0.9 cm 0.6 - 1.0 / 0.6 - 0.9 cm LV Relative Wall Thickness 0.5 LVOT Diameter 2.0 cm Ascending Aorta Diameter 2.7 cm M-MODE Aortic Root Diameter MM 2.3 cm LA Systolic Diameter MM 3.3 cm LA Ao Ratio MM 1.4 AV Cusp Separation MM 1.8 cm DOPPLER AV Peak Velocity 121.5 cm/s AV Peak Gradient 5.9 mmHg AV Mean Velocity 86.6 cm/s AV Mean Gradient 3.3 mmHg AV Velocity Time Integral 24.3 cm LVOT Peak Velocity 106.8 cm/s LVOT Peak Gradient 4.6 mmHg LVOT Velocity Time Integral 20.5 cm LVOT Stroke Volume 61.5 cm??? LVOT Stroke Volume Index 34.3 ml/m??? LVOT Cardiac Index 2434.3 cm???/min???m??? AV Area Cont Eq vti 2.5 cm??? AV Area Cont Eq pk 2.6 cm??? Mitral E Point Velocity 72.7 cm/s Mitral A Point Velocity 101.7 cm/s Mitral E to A Ratio 0.7 MV Deceleration Time 237.3 ms LV E' Lateral Velocity 9.5 cm/s Mitral E to LV E' Lateral Ratio 7.7 LV E' Septal Velocity 7.5 cm/s Mitral E to LV E' Septal Ratio 9.6 TR Peak Velocity 288.8 cm/s TR Peak Gradient 33.4 mmHg Right Atrial Pressure 3.0 mmHg Pulmonary Artery Systolic Pressu 36.4 mmHg Right Ventricular Systolic Press 36.4 mmHg FINDINGS Left Ventricle Normal Left ventricular size, wall thickness, systolic function with no obvious regional wall motion abnormalities. Left ventricular ejection fraction is estimated at 60-65%. Right Ventricle Normal right ventricular size and function. Mild pulmonary hypertension. Right Atrium Normal right atrial size. Left Atrium Left atrial size at the upper limits of normal. Mitral Valve Mitral valve thickened. Mild mitral regurgitation. Aortic Valve Trileaflet aortic valve. No aortic valve stenosis or regurgitation. Tricuspid Valve Structurally normal tricuspid valve. Mild tricuspid regurgitation. Pulmonic Valve Pulmonic valve not well visualized. No pulmonic regurgitation. Pericardium Minimal pericardial effusion (normal variant). Aorta Normal size aortic root and proximal ascending aorta. CONCLUSIONS Left ventricular ejection fraction is estimated at 60-65%. No obvious regional wall motion abnormalities. No significant chamber size abnormality No significant valvular dysfunction No prior echo to compare with within database Previewed by: Dr Manas Reaves (Electronically Signed) Final Date: 27 November 2022 08:14
== END | disposition home or self-care (01) ==
LOC: RADECHMAIN 12:50
PROVIDERS: ATTEND Family Medicine
DX: I08.1 Rheumatic disorders of both mitral and tricuspid valves (principal); R06.09 Other forms of dyspnea
CPT/HCPCS: 93306

== ENCOUNTER → 2023-08-03 | Outpatient (CLI) | payer MEDICARE ==
--- NOTE | 2023-08-07 19:21 | MM ---
Reason for Exam: Screening (asymptomatic). Last mammogram was performed 1 year(s) and 1 month(s) ago. Patient History: Menarche at age 11. First Full-Term at age 18. Hysterectomy at age 68. Postmenopausal. Patient has history of breast feeding. Endometrial cancer, age 69. Patient used Hormonal Contraceptives for 15 years. 01/04/2008, Benign Core Biopsy on the right side. Sister had breast cancer, age 73. Risk Values: Meagan 5 year model risk: 4.2%. NCI Lifetime model risk: 10.7%. Prior Study Comparison: 04/20/2020 Bilateral Screening Mammogram, [facility]. 06/02/2021 Bilateral Screening Mammogram, [facility]. 07/28/2022 Bilateral MG 3D screening mammo w/cad, [facility]. Tissue Density: There are scattered areas of fibroglandular density. Findings: Analyzed By CAD. Microclip right breast from prior biopsy. There is no suspicious group of microcalcifications or new suspicious mass in either breast. Overall Assessment: Negative, BI-RAD 1 Management: Screening Mammogram of both breasts in 1 year. See note below in regards to patient's increased 5 year Meagan score. Patient should continue monthly self-breast exams. A clinical breast exam by your physician is recommended on an annual basis. This exam should not preclude additional follow-up of suspicious palpable abnormalities. Note on Meagan scores and lifetime risk: 1. A Meagan score greater than 3% is considered moderate risk. If this is the case, consider specialist referral to assess eligibility for a risk reducing agent. 2. If overall lifetime risk for the development of breast cancer is 20% or higher, the patient may qualify for future screening with alternating mammogram and breast MRI. Electronically signed and approved by: Casey Landa M.D. Radiologist
== END | disposition home or self-care (01) ==
LOC: RADMAMWWP 13:08
PROVIDERS: ATTEND Family Medicine
DX: Z12.31 Encounter for screening mammogram for malignant neoplasm of breast (principal); Z78.0 Asymptomatic menopausal state; Z80.3 Family history of malignant neoplasm of breast
CPT/HCPCS: 77063; 77067

== ENCOUNTER → 2024-08-13 | Outpatient (CLI) | payer MEDICARE ==
--- NOTE | 2024-08-14 13:13 | CA ---
Transthoracic Echo Report Name: Sandee Aguila Age: 73 Gender: F : 1950 Exam Date: 08/13/2024 13:28 Exam Location: [place] [facility] Ht (in): 61 Wt (lb): 180 Ordering Physician: Jeff Jordan DO Attending/Referring Phys: Emery Zarate [facility] Traffic Coordinator Shasha Juarez RDCS Procedure CPT: Indications: R07.89 other chest pain Cardiac Hx: Technical Quality: Good Contrast 1: Total Dose (mL): Contrast 2: Total Dose (mL): MEASUREMENTS (Male / Female) Normal Values 2D ECHO LV Diastolic Diameter PLAX 4.3 cm 4.2 - 5.9 / 3.9 - 5.3 cm LV Systolic Diameter PLAX 3.1 cm IVS Diastolic Thickness 0.9 cm 0.6 - 1.0 / 0.6 - 0.9 cm LVPW Diastolic Thickness 0.8 cm 0.6 - 1.0 / 0.6 - 0.9 cm LV Relative Wall Thickness 0.4 LVOT Diameter 1.8 cm LV Diastolic Volume MOD BP 59.6 cm??? 67 - 155 / 56 - 104 cm??? LV Systolic Volume MOD BP 22.2 cm??? 22 - 58 / 19 - 49 cm??? LV Ejection Fraction MOD BP 62.8 % >= 55 % LV Cardiac Index MOD BP 1759.8 cm???/min???m??? LV Diastolic Volume MOD 4C 69.1 cm??? LV Systolic Volume MOD 4C 22.6 cm??? LV Ejection Fraction MOD 4C 67.3 % LV Cardiac Index MOD 4C 2189.1 cm???/min???m??? LV Diastolic Length 4C 7.1 cm LV Systolic Length 4C 5.3 cm LV Diastolic Volume MOD 2C 45.7 cm??? LV Systolic Volume MOD 2C 20.0 cm??? LV Ejection Fraction MOD 2C 56.3 % LV Cardiac Index MOD 2C 1211.4 cm???/min???m??? LV Diastolic Length 2C 6.3 cm LV Systolic Length 2C 5.9 cm LA Volume 39.3 cm??? 18 - 58 / 22 - 52 cm??? LA Volume Index 20.6 cm???/m??? 16 - 28 cm???/m??? Ascending Aorta Diameter 2.8 cm DOPPLER AV Peak Velocity 129.9 cm/s AV Peak Gradient 6.8 mmHg AV Mean Velocity 84.1 cm/s AV Mean Gradient 3.3 mmHg AV Velocity Time Integral 23.1 cm LVOT Peak Velocity 116.1 cm/s LVOT Peak Gradient 5.4 mmHg LVOT Velocity Time Integral 21.4 cm LVOT Stroke Volume 55.0 cm??? LVOT Stroke Volume Index 30.5 ml/m??? LVOT Cardiac Index 2590.5 cm???/min???m??? AV Area Cont Eq vti 2.4 cm??? AV Area Cont Eq pk 2.3 cm??? MV Area PHT 5.1 cm??? Mitral E Point Velocity 69.9 cm/s Mitral A Point Velocity 100.9 cm/s Mitral E to A Ratio 0.7 MV Deceleration Time 148.6 ms TR Peak Velocity 238.8 cm/s TR Peak Gradient 22.8 mmHg Right Atrial Pressure 5.0 mmHg Pulmonary Artery Systolic Pressu 27.8 mmHg Right Ventricular Systolic Press 27.8 mmHg PV Peak Velocity 125.0 cm/s PV Peak Gradient 6.2 mmHg FINDINGS Left Ventricle Left ventricular ejection fraction is estimated at 60-65 %. Left ventricular cavity size normal. Left ventricular wall thickness normal. No obvious regional wall motion abnormalities. Right Ventricle Normal right ventricular size and function. Right ventricular systolic pressure within normal limits. Right Atrium Normal right atrial size. Left Atrium Normal left atrial size. Mitral Valve Mitral valve thickened. No evidence for mitral valve prolapse. No mitral stenosis. Trace mitral regurgitation. Aortic Valve Trileaflet aortic valve. No aortic valve stenosis or regurgitation. Tricuspid Valve Structurally normal tricuspid valve. No tricuspid stenosis. Mild tricuspid regurgitation. Pulmonic Valve Structurally normal pulmonic valve. No pulmonic stenosis. Trace pulmonic regurgitation. Pericardium No pericardial effusion. Aorta Normal size aortic root and proximal ascending aorta. CONCLUSIONS Normal LV size and systolic function. No significant abnormality on the Doppler exam. No pericardial effusion Previewed by: Dr. Phil Mills MD (Electronically Signed) Final Date: 14 Aug 2024 13:12
== END | disposition home or self-care (01) ==
LOC: RADECHMAIN 13:19
PROVIDERS: ATTEND Family Medicine
DX: I37.1 Nonrheumatic pulmonary valve insufficiency (principal)
CPT/HCPCS: 93306

== ENCOUNTER → 2024-11-01 | Outpatient (CLI) | payer MEDICARE ==
--- NOTE | 2024-11-01 17:01 | CT ---
EXAMINATION TYPE: CT chest wo con CT DLP: 572 mGycm, Automated exposure control for dose reduction was used. DATE OF EXAM: 11/01/2024 4:50 PM COMPARISON: CT chest abdomen and pelvis 11/13/2020 CLINICAL INDICATION:Female, 74 years old with history of R91.8 ABNORMAL FINDING LUNG FIELD; PHH, hx o f lung nodule TECHNIQUE: Multiple axial images were obtained through the chest without IV contrast. Lack of IV or o ral contrast limits evaluation of solid and hollow organ viscera. . Coronal and sagittal reformats re viewed. FINDINGS: LUNGS/ PLEURA: No pleural effusion, pneumothorax, or focal consolidation. Minimal bilateral lower lob e linear atelectasis and/or scarring. Single left lower lobe 3.9 mm pulmonary nodule. Stable left mid lung 2 mm pulmonary nodule. These are stable dating back to 2020 and considered benign. No new or enl arging pulmonary nodules. AIRWAY: Patent and unremarkable.. HEART: Prominent heart size. . No pericardial effusion. Mild coronary artery calcifications present. MEDIASTINUM: No gross evidence of adenopathy. VASCULATURE: No aortic aneurysm. MUSCULOSKELETAL: Mild disc degeneration changes are present throughout the thoracolumbar spine. No ac [place] osseous abnormality. SOFT TISSUES/LYMPH NODES: Unremarkable. LOWER NECK: No significant findings. UPPER ABDOMEN: Moderate size hiatal hernia. IMPRESSION: 1. Couple of stable left lung pulmonary nodules measuring less than 4 mm. These are considered benign due to stability from at least 2020. No new or enlarging pulmonary nodules. 2. Moderate size hiatal hernia. [facility], , 11/01/2024 4:59 PM
== END | disposition home or self-care (01) ==
LOC: RADCTMAIN 16:25
PROVIDERS: ATTEND Family Medicine
DX: R91.8 Other nonspecific abnormal finding of lung field (principal); K44.9 Diaphragmatic hernia without obstruction or gangrene
CPT/HCPCS: 71250